=== PATIENT | female | born 1935 | race Caucasian/White ===

== ENCOUNTER → 2020-06-11 13:12 | Outpatient (CLI) | payer MEDICARE, OTHER, SELFPAY ==
--- NOTE | 2020-06-11 13:16 | DI.RAD.S_ITS ---
PROCEDURE: XR HIP W PEL IF DONE RT 2V INDICATIONS: Right hip pain status post total hip arthroplasty TECHNIQUE: AP pelvis with lateral view(s) of the right hip(s). COMPARISON: [facility] [place], [place], XR PELVIS W LATERAL HIP RT, 04/02/2017, 10:11. FINDINGS: Bones: No fractures or dislocations. Pelvic ring appears intact. No suspicious bony lesions. Right hip arthroplasty hardware is seen. No findings of hardware failure or hardware loosening are seen. [id number] degenerative change is seen of the contralateral left hip. Age-appropriate lower lumbar spine degenerative changes are noted. Soft tissues: The visualized bowel gas pattern is normal. No suspicious soft tissue calcifications. A left groin clips can be seen. IMPRESSION: Unremarkable right hip arthroplasty hardware. Dictated by: Nadir Mcnally M.D. on 06/11/2020 at 13:28 Approved by: Nadir Mcnally M.D. on 06/11/2020 at 13:30
== END ==
PROVIDERS: PCP Internal Medicine; Referring Provider Physical Medicine & Rehabilitation; Visit Provider Physical Medicine & Rehabilitation
DX: M25.551 Pain in right hip (principal); Z96.641 Presence of right artificial hip joint
CPT/HCPCS: 73502